=== PATIENT | female | born 1980 | race Caucasian/White ===

== ENCOUNTER 2017-08-04 19:37 | Emergency (ER) | payer MEDICAID ==
--- NOTE | 2017-08-04 19:49 | EDM.PDOC ---
ED HPI GENERAL MEDICAL PROBLEM - General Chief Complaint: Upper Extremity Injury/Pain Stated Complaint: LEFT HAND INJURY Time Seen by Provider: 08/04/17 19:37 Source of Information: Reports: Patient History Limitations: Reports: No Limitations - History of Present Illness INITIAL COMMENTS - FREE TEXT/NARRATIVE: 36 YO WF presents to ER with left hand injury from a drill bit. Pt reports she accidentally stuck the palmar surface of her left hand with a metal drill bit just prior to arrival. Pt denies any motor or sensory dysfunction from injury. Pt reports her tetanus is up to date. Pt denies any other injury Onset Date: 08/04/17 Onset Time: 19:00 Location: Reports: Lower Extremity, Left Quality: Reports: Ache Severity: Moderate Improves with: Reports: None Worsens with: Reports: None Associated Symptoms: Reports: No Other Symptoms - Related Data Allergies Allergy/AdvReac Type Severity Reaction Status Date / Time amoxicillin Allergy Hives Verified 08/04/17 19:54 latex Allergy Hives Verified 08/04/17 19:54 Home Meds: Home Meds Sulfamethoxazole/Trimethoprim [Septra DS] 1 tab PO BID #20 tablet 08/04/17 [Rx] traMADol HCl [Ultram] 50 mg PO Q6HR PRN #10 tablet 08/04/17 [Rx] Review of Systems - Review of Systems Review Of Systems: See Below Constitutional: Reports: No Symptoms Eyes: Reports: No Symptoms Ears: Reports: No Symptoms Nose: Reports: No Symptoms Mouth/Throat: Reports: No Symptoms Respiratory: Reports: No Symptoms Cardiovascular: Reports: No Symptoms GI/Abdominal: Reports: No Symptoms Genitourinary: Reports: No Symptoms Musculoskeletal: Reports: Hand Pain (palmar surface of left hand ) Skin: Reports: Wound Neurological: Reports: No Symptoms Psychiatric: Reports: No Symptoms ED EXAM, GENERAL - Physical Exam Exam: See Below Exam Limited By: No Limitations General Appearance: Alert, WD/WN, No Apparent Distress Head: Atraumatic, Normocephalic Neck: Normal Inspection, Supple, Non-Tender, Full Range of Motion Respiratory/Chest: No Respiratory Distress, Lungs Clear, Normal Breath Sounds, No Accessory Muscle Use, Chest Non-Tender Cardiovascular: Normal Peripheral Pulses, Regular Rate, Rhythm, No Edema, No Gallop, No JVD, No Murmur, No Rub GI/Abdominal: Normal Bowel Sounds, Soft, Non-Tender, No Organomegaly, No Distention, No Abnormal Bruit, No Mass Back Exam: Normal Inspection, Full Range of Motion, NT Neurological: Alert, Oriented, CN II-XII Intact, Normal Cognition, Normal Gait, Normal Reflexes, No Motor/Sensory Deficits Psychiatric: Normal Affect, Normal Mood Skin Exam: Wound/Incision (puncture wound to palmar surface of left hand) Lymphatic: No Adenopathy Course - Orders/Labs/Meds Orders: Active Orders 24 hr Category Date Time Status Hand Comp Min 3V Lt [CR] Stat Exams 08/04/17 19:49 Ordered Meds: Medications Discontinued Medications Generic Name Dose Route Start Last Admin Trade Name Freq PRN Reason Stop Dose Admin Ketorolac Tromethamine 60 mg 08/04/17 19:58 08/04/17 20:07 Toradol IM 08/04/17 19:59 60 mg ONETIME ONE Administration - Radiology Interpretation Free Text/Narrative:: left hand- no fracture Departure - Departure Time of Disposition: 20:19 Disposition: Home, Self-Care 01 Condition: Good Clinical Impression: Puncture wound of left hand without complication Qualifiers: Encounter type: initial encounter Qualified Code(s): S61.432A - Puncture wound without foreign body of left hand, initial encounter - Discharge Information Prescriptions: traMADol HCl [Ultram] 50 mg PO Q6HR PRN #10 tablet PRN Reason: Pain Sulfamethoxazole/Trimethoprim [Septra DS] 1 tab PO BID #20 tablet Instructions: Puncture Wound Referrals: Bennett Greer, ENOLOGIST [Primary Care Provider] - Forms: ED Department Discharge - My Orders Last 24 Hours: My Active Orders 08/04/17 19:49 Hand Comp Min 3V Lt [CR] Stat - Assessment/Plan Last 24 Hours: My Active Orders 08/04/17 19:49 Hand Comp Min 3V Lt [CR] Stat Assessment:: 1. puncture wound to palmar surface of left hand Plan: 1. discharge home 2. septra DS BID x 10 days 3. ultram 50mg PO Q6 #10 4. follow up with PCP for further evaluation and treatment 5. return to ER for worsening symptoms
[2017-08-04] MEDS ORDERED: Ketorolac 60 MG/2 ML SDV IM ONE (19:58)
== END 2017-08-04 20:30 | disposition home or self-care (01) ==
LOC: KA.ED 19:37
DX: S61.432A Puncture wound without foreign body of left hand, initial encounter (principal); Z88.1 Allergy status to other antibiotic agents; Z91.040 Latex allergy status; W26.9XXA Contact with unspecified sharp object(s), initial encounter
CPT/HCPCS: 73130-LT; 96374; 99283; J1885